=== PATIENT | male | born 1990 | race African-American/Black ===

== ENCOUNTER 2022-08-02 21:49 | Emergency (ER) | payer OTHER ==
[~2022-08-02] VITALS: Ht 175.3 cm; Wt 68.0 kg
[2022-08-02] MEDS ORDERED: IBUPROFEN 600 MG TAB PO STA (23:25)
[2022-08-02] MEDS ORDERED: IBUPROFEN 600 MG TAB ONE (23:29)
== END 2022-08-03 00:13 | disposition home or self-care (01) ==
LOC: FSED 22:03
DX: R50.9 Fever, unspecified (principal); B34.9 Viral infection, unspecified; R42 Dizziness and giddiness; R11.0 Nausea; F17.210 Nicotine dependence, cigarettes, uncomplicated
CPT/HCPCS: 83518; 87400; 99283; U0002